=== PATIENT | female | born 1950 | race Caucasian/White ===

== ENCOUNTER → 2017-03-12 | Outpatient (CLI) | payer MEDICARE, OTHER ==
[~2017-03-12] MED LIST: ACIPHEX20 MG PO; B COMPLEX1 CA1 PO; B-12 INJECTION IM; CALCIUM + D 6001 TA1 PO; CALCIUM 500 + D1 TAB PO; CERTAGEN PO; CYANOCOBAL1000 MCG/M INJ; CYMBALTA PO; DILAUDID PO; IBUPROFEN PO; IBUPROFEN800 MG PO; MEDROL PO; MICRO-K PO; MIRALAX PO; MIRALAX17 GM PO; MIRALAX255 GM PO; MUCINEX DM1 TAB.SR . PO; MULTIPLE VITAMI1 T11 PO; NEURONTIN PO; NEURONTIN100 MG PO; NEXIUM PO; OMEPRAZOLE20 M2 PO; OXYCONTIN PO; OXYCONTIN80 MG PO; PERCOCET10 PO; RESTORIL15 MG PO; SINGULAIR PO; SKELAXIN PO; SUDAFED PO; SUDAFED60 MG PO; TOPAMAX25 MG PO; TOPIRAMATE25 MG PO; TRAZODONE HCL100 MG PO; VITAMIN B-12 INJ; VITAMIN D 4001 UDTAB PO; VITAMIN D1000 UNI1 PO; WELLBUTRIN PO
--- NOTE | ~2017-03-12 | CR150 ---
[facility]. [facility] A Service of [facility] & [facility] RADIOLOGY TEXT RESULTS PATIENT: GINETTE CARBALLO LOCATION: [facility] : 46 UNIT #: [id number] AGE: [address]: Maria Del Rosario Amaya SEX: F ORDER DR: [id number] [address] [address] [id number] O MR#: [id number] Acc #: [id number] NAME: GINETTE CARBALLO : 1950 SEX: F STUDY DATE/TIME: 03/12/2017 12:10 UNIT: [facility] ROOM: STUDY DESCRIPTION: CR Hip Min 2 Views Lt Ordering Physician: Francisco Paz M.D. Primary Care Physician: Francisco Paz M.D. MEDICAL IMAGING REPORT This report is preliminary unless electronic signature is present. EXAM Left hip INDICATIONS Left hip pain in 3-4 weeks. FINDINGS An AP of the pelvis and a lateral view left hip were obtained. The bones are normal. The joint space is normal. SI joints normal. IMPRESSION Normal AP pelvis and left hip. Dictated by... Arnold Nunez M.D. THIS IS AN ELECTRONICALLY VERIFIED REPORT Arnold Nunez M.D. at 03/13/2017 5:28 PM FEL/pcl TD: 03/13/2017 16:26 JOB #: [id number] MEDICAL IMAGING REPORT Page 1 of 1
--- NOTE | ~2017-03-12 | CR151 ---
[facility] A Service of [facility] & [facility] RADIOLOGY TEXT RESULTS PATIENT: GINETTE CARBALLO LOCATION: [facility] : 46 UNIT #: [id number] AGE: [address]: Maria Del Rosario Amaya SEX: F ORDER DR: [id number] [place] [id number] O MR#: [id number] Acc #: [id number] NAME: GINETTE CARBALLO : 1950 SEX: F STUDY DATE/TIME: 03/12/2017 12:10 UNIT: [facility] ROOM: STUDY DESCRIPTION: CR Hip Min 2 Views Rt Attending Physician: Martin Amaya P.A.-C. Referring Physician: Martin Amaya P.A.-C. Ordering Physician: Francisco Paz M.D. Primary Care Physician: Francisco Paz M.D. MEDICAL IMAGING REPORT This report is preliminary unless electronic signature is present. EXAM Right hip. HISTORY Right hip pain for 3-4 weeks. FINDINGS An AP view of the pelvis and a lateral view of the right hip were obtained. The bones are normal. The SI joints are normal and the joint space is normal. IMPRESSION Normal right hip. Dictated by... Arnold Nunez M.D. THIS IS AN ELECTRONICALLY VERIFIED REPORT Arnold Nunez M.D. at 03/13/2017 5:28 PM LIANA/jamila TD: 03/13/2017 16:32 JOB #: [id number] MEDICAL IMAGING REPORT Page 1 of 1
== END | disposition home or self-care (01) ==
LOC: SRAD 11:52
DX: M25.552 Pain in left hip (principal); M25.551 Pain in right hip
CPT/HCPCS: 73502

== ENCOUNTER → 2017-06-06 | Outpatient (CLI) | payer MEDICARE, OTHER ==
--- NOTE | ~2017-06-06 | CR181 ---
[facility]. [facility] A Service [facility] RADIOLOGY TEXT RESULTS PATIENT: GINETTE CARBALLO LOCATION: [facility] : 46 UNIT #: [id number] AGE: [address]: Freddy PATE SEX: F ORDER DR: [id number] [place] [id number] O MR#: [id number] Acc #: [id number] NAME: GINETTE CARBALLO. : 1950 SEX: F STUDY DATE/TIME: 06/06/2017 13:00 UNIT: [facility] ROOM: STUDY DESCRIPTION: CR Lumbar Spine 2 or 3 Views Ordering Physician: Caitlin Veloz M.D. Primary Care Physician: Francisco Paz M.D. MEDICAL IMAGING REPORT This report is preliminary unless electronic signature is present. EXAM Lumbar spine series HISTORY L3 compression fracture, March 17, 2017. History of previous fractures. Chronic back pain. TECHNIQUE 3 views of the lumbar spine were obtained. FINDINGS Ipt-yy-umide lumbar levoscoliosis is again noted and unchanged. Fractures of L2, L3 and L4 are noted, all appearing unchanged from the previous examination. No new lumbar fractures are seen and no destructive bone lesions are noted. Alignment is unchanged. IMPRESSION Chronic lumbar compression fractures have remained stable since the previous examination of 03/18/2017. No new fractures are noted. Dictated by... Umesh Jenkins M.D. THIS IS AN ELECTRONICALLY VERIFIED REPORT Umesh Jenkins M.D. at 06/09/2017 11:44 AM RLF/pcl TD: 06/06/2017 18:49 JOB #: [id number] [facility] A [facility] RADIOLOGY TEXT RESULTS PATIENT: GINETTE CARBALLO LOCATION: [facility] : 46 UNIT #: [id number] AGE: [address]: Freddy PATE SEX: F ORDER DR: MEDICAL IMAGING REPORT Page 1 of 1
== END | disposition home or self-care (01) ==
LOC: SRAD 12:37
DX: S32.030A Wedge compression fracture of third lumbar vertebra, initial encounter for closed fracture (principal)
CPT/HCPCS: 72100